=== PATIENT | female | born 1975 | race Caucasian/White ===

== ENCOUNTER 2016-12-18 16:24 | Inpatient (IN) ==
[2016-12-18] MEDS ORDERED: Gabapentin 400 MG CAPSULE PO PRN (16:54)
[2016-12-18] MEDS ORDERED: MOM Conc 10 ML UD.LIQ PO PRN (16:56)
[2016-12-18] MEDS ORDERED: Haloperidol Lactate 5 MG/ML VIAL IM PRN (16:56)
[2016-12-18] MEDS ORDERED: hydrOXYzine pamoate 25 MG CAPSULE PO PRN (16:56)
[2016-12-18] MEDS ORDERED: Mag Hydrox/Al Hydrox/Simeth 30 ML UDC PO PRN (16:56)
[2016-12-18] MEDS ORDERED: *HR* LORazepam 2 MG/ML VIAL IM PRN (16:56)
[2016-12-18] MEDS ORDERED: *HR* LORazepam 1 MG TABLET PO PRN (16:56)
[2016-12-18] MEDS: Nicotine 14 MG PATCH.TD24 TD SCH (17:47)
[2016-12-18] MEDS: traZODone 50 MG TABLET PO PRN (21:03)
[2016-12-18] MEDS: Ibuprofen 400 MG TABLET PO PRN (21:03)
[2016-12-19] MEDS: Nicotine 14 MG PATCH.TD24 TD SCH (08:12)
[2016-12-19] MEDS: Cholecalciferol (D-3) 1,000 UNIT TABLET PO SCH (08:13)
[2016-12-19] MEDS ORDERED: FLUoxetine 20 MG CAPSULE PO SCH ×2 (09:00→11:47)
--- NOTE | 2016-12-19 11:40 | Psychiatry History & Physical ---
Date of Encounter: 12/19/16 Time of Encounter: 11:35 History of Present Illness Patient Stated Chief Complaint: "I am just so overwhelmed." Medicare Admission Attestation: For traditional Medicare patients the provided hospital inpatient services are reasonable and necessary and in the case of services not specified as inpatient -only under 42 CFR 419.22 (n), that they are appropriately provided as inpatient services in accordance 42 CFR 412.3. For Critical [facility] Hospital the patient may reasonably be expected to be discharged or transferred to a hospital within 96 hours after admission to the Critical Access Hospital. Admitted From: Direct Admit History of Present Illness: Ms. Lomeli is a 41 year old female with a history of depression and anxiety treated by PCP who presented to the outside hospital yesterday with increasing depression, panic attacks, suicidal ideation with a plan to drive her car off a bridge. Patient's called the hospital and it was recommended that she be evaluated. She was seen in the ER and continued to endorse suicidal thoughts with a plan to drive her car off the bridge. She was then admitted to for psychiatric stabilization. Patient states today she is starting to feel more calm but still feels very depressed and hopeless. Patient reports that they are having a lot of financial difficulties because her stopped going to work and will lose his job. He has been unable to find a new job. Having the kids home over the summer and being unable to pay her bills has been very stressful. She reports that she is taking Prozac provided by her primary care doctor and that this medication has helped some with her depression but not really with her anxiety. She also reports difficulty falling asleep and staying asleep. She denies grandiosity, decreased need for sleep, impulsivity. She denies obsessions, delusions, paranoia. Patient states that prior to coming into the hospital she was having panic attacks with difficulty breathing and chest pain. She denies any current chest pain or shortness of breath now. Past Med Surg Social Fam HX - Past Medical History Medical history: hyperlipidemia, hypertension, other - Past Psychiatric History Psychiatric history: Reports: anxiety, depression. Denies: prior suicide attempt, previous psychiatric hospitalization Past psychiatric history details: Patient seen by PCP as an outpatient. No counseling. Patient does not have a history of inpatient admissions or suicide attempts. Family psychiatric history: No Family History of Suicide: None - Social History Smoking Status: Current every day smoker Smokeless Tobacco Status: No Alcohol use: none Drug use: marijuana Occupational status: unemployed Current living situation: Home, With Family - Family History Mother Adopted: Madill: Riya Tavarez Age: 61 Family Member Ethnicity: Non- Living Status: Still Living Hx Family Cardiac Disorders: Yes (Tachycardia) Hx Family Respiratory Disorders: Yes (on oxygen) Hx Family Cancer: No Hx Family GI Disorders: No Hx Family Genitourinary Disorders: No Hx Family Endocrine Disorder: Yes (IDDM) Hx Family Musculoskeletal Disorders: No Hx Family Neuromuscular Disorders: No Hx Family Neurologic Disorders: No Hx Family HEENT Disorders: No Hx Family Autoimmune Disorders: No Hx Family Reproductive Disorders: No Hx Family Psychosocial Disorders: No Hx Family Medical Disorders: No Medications & Allergies Atorvastatin Calcium [Lipitor] 20 mg PO DAILY 06/28/15 [History] Ergocalciferol (VITAMIN D2) [Vitamin D2 (50,000 UNIT)] 50,000 unit PO AGUIRRE [History] Gabapentin [Neurontin] 800 mg PO Q8H PRN 06/28/15 [History] Lisinopril/Hydrochlorothiazide [Zestoretic 20-25 mg Tablet] 1 tab PO DAILY 06/28 [History] traZODone [TraZODone] 50 mg PO HS PRN 06/28/15 [History] FLUoxetine HCl [Prozac] 80 mg PO DAILY 12/18/16 [History] Acetaminophen [Tylenol Arthritis] 650 mg PO Q8H PRN 12/19/16 [History] Valsartan/Hydrochlorothiazide [Diovan Hct 320-25 mg Tablet] 1 tab PO DAILY 12/19 [History] amLODIPine [Norvasc] 5 mg PO DAILY 12/19/16 [History] Allergies No Known Allergies Allergy (Verified 06/28/15 13:38) Review of Systems Constitutional: Denies: fever, chills, weakness, weight change Eyes: Denies: eye pain, vision change Ears, Nose, Throat: Denies: ear pain, throat pain, dental pain, hearing loss, congestion Cardiovascular: Denies: chest pain, palpitations, dyspnea on exertion Respiratory: Denies: cough, dyspnea, wheezes Gastrointestinal: Denies: abdominal pain, nausea, vomiting, diarrhea, constipation Genitourinary male: Denies: urgency, dysuria, frequency, genital lesions Genitourinary female: Denies: urgency, dysuria, frequency, abnormal menses, dyspareunia Musculoskeletal: Denies: joint swelling, joint pain Integumentary: Denies: rash, lesions, pruritus Neurological: Denies: headache, weakness, numbness, memory loss Psychiatric: Reports: depression, anxiety, abnormal sleep pattern, suicidal ideation, anhedonia, difficulty concentrating, hopelessness, irritability, mood swings, panic attacks, other (finanical stress) Endocrine: Denies: fatigue, heat or cold intolerance Hematologic/Lymphatic: Denies: easy bruising, lymphadenopathy Allergic/Immunologic: Denies: urticaria, itchy eyes Mental Status Exam Patient orientation: Yes Person, Yes Time, Yes Place Level of alertness: Alert Patient appearance: Unkempt Behavior: cooperative Psychomotor activity: Normal Eye contact: Minimal Contact Mood description: Depressed, Anxious Affect description: tearful, dysphoric Speech pattern: Normal rate, Normal rhythm, Normal tone Speech volume: Normal Thought process: Intact Thought content: Yes Suicidal ideation, No Homicidal ideation Perceptual disturbances: No Auditory hallucinations, No Visual hallucinations Attention span: Capable of Focused Attention Memory description: Grossly Intact Patient reliability: Reliable Historian Intelligence estimate: Average Judgment: Limited Insight: Minimal Exam - HEENT Head exam IM: Present: atraumatic Eye exam IM: Present: EOMI, normal appearance - Neurological Neurological exam IM: Present: CN II-XII intact - Skin Skin exam IM: Present: dry, intact Results - Vital Signs Vital signs: Temp Pulse Resp BP 97.2 F L 68 16 147/104 12/19/16 08:40 12/19/16 08:40 12/19/16 08:40 12/19/16 08:40 Assessment and Plan (1) Major depressive disorder, recurrent episode Current visit: Yes Status: Acute Plan: Admit inpatient for safety and stabilization, Close observation, Suicide Precautions per unit protocol, Encourage participation in unit milieu, Group Therapy, Monitor sleep, Monitor appetite Additional Plan: Admission 1A for psychiatric stabilization. Patient is feeling slightly better since admission but still feels hopeless with passive ideations. We will increase Prozac to 60 mg by mouth daily. Start trazodone for sleep. Encourage group attendance. Suicide precautions. Risks, benefits, side effects, alternatives discussed w/pt: Yes Patient agreeable to treatment: Yes Plans for Post Hospital Care: Home Estimated Length of Stay (Days): 3 Qualifiers: Major depression episode severity: severe Psychotic features: without psychotic features Qualified Code(s): F33.2 - Major depressive disorder, recurrent severe without psychotic features (2) Anxiety Current visit: Yes Status: Acute Plan: Admit inpatient for safety and stabilization, Close observation, Suicide Precautions per unit protocol, Encourage participation in unit milieu, Group Therapy, Monitor sleep, Monitor appetite Additional Plan: Vistaril as needed for anxiety symptoms. Encourage positive coping strategies. Risks, benefits, side effects, alternatives discussed w/pt: Yes Patient agreeable to treatment: Yes
[2016-12-19] MEDS: Ibuprofen 400 MG TABLET PO PRN (18:43)
[2016-12-19] MEDS: traZODone 50 MG TABLET PO PRN (20:39)
[2016-12-20] MEDS: Nicotine 14 MG PATCH.TD24 TD SCH (08:39)
[2016-12-20] MEDS: Cholecalciferol (D-3) 1,000 UNIT TABLET PO SCH (08:41)
[2016-12-20] MEDS ORDERED: Valsartan 160 MG TABLET PO SCH (09:00)
[2016-12-20] MEDS ORDERED: amLODIPine 5 MG TABLET PO SCH (09:00)
[2016-12-20] MEDS ORDERED: hydroCHLOROthiazide 25 MG TABLET PO SCH (09:00)
[2016-12-20 09:30] VITALS: BP 140/99
--- NOTE | 2016-12-20 10:55 | Discharge Summary ---
Date of Encounter: 12/20/16 Time of Encounter: 10:30 Diagnosis - Discharge Diagnosis (1) Major depressive disorder, recurrent episode Priority: Primary Status: Acute Qualifiers: Major depression episode severity: severe Psychotic features: without psychotic features Qualified Code(s): F33.2 - Major depressive disorder, recurrent severe without psychotic features (2) Anxiety Priority: Secondary Status: Acute Medications - Discharge Medications Prescriptions: FLUoxetine HCl [Prozac] 60 mg PO DAILY #90 capsule hydrOXYzine pamoate [HydrOXYzine Pamoate] 25 mg PO TID PRN #90 capsule PRN Reason: Anxiety traZODone [TraZODone] 50 mg PO HS PRN #60 tablet PRN Reason: Sleep Atorvastatin Calcium [Lipitor] 20 mg PO DAILY 06/28/15 [History] Ergocalciferol (VITAMIN D2) [Vitamin D2 (50,000 UNIT)] 50,000 unit PO AGUIRRE [History] Gabapentin [Neurontin] 800 mg PO Q8H PRN 06/28/15 [History] Lisinopril/Hydrochlorothiazide [Zestoretic 20-25 mg Tablet] 1 tab PO DAILY 06/28 [History] Valsartan/Hydrochlorothiazide [Diovan Hct 320-25 mg Tablet] 1 tab PO DAILY 12/19 [History] amLODIPine [Norvasc] 5 mg PO DAILY 12/19/16 [History] FLUoxetine HCl [Prozac] 60 mg PO DAILY #90 capsule 12/20/16 [Rx] hydrOXYzine pamoate [HydrOXYzine Pamoate] 25 mg PO TID PRN #90 capsule 12/20/16 [Rx] traZODone [TraZODone] 50 mg PO HS PRN #60 tablet 12/20/16 [Rx] Allergies No Known Allergies Allergy (Verified 06/28/15 13:38) Provider Date of admission: 12/18/16 16:24 Primary care physician: PCP NO Discharging clinician: Laura Rosales Assessment and Plan - Patient/Caregiver Discharge Instructions Activity: resume usual activities as tolerated Diet: regular diet - Follow up [facility]06/[facility] 3:15 pm (The above appointment is withKaren for mental health counseling. You will also see Dr. oClumba Jordan, psychiatrist, on 01/15/2017 at 4:30pm. Please arrive 15 minutes early to complete paperwork. Please bring your insurance card, photo ID and medications in their original bottles. If you do not have insurance, bring proof of income to apply for the sliding fee scale. If you are unable to keep this appointment, 24 hour business notice of cancellation is expected. This is the first available appointment. You may contact the office regularly to check for cancellations that may allow you to be seen sooner. ) Functional capacity at discharge: independent ambulation Overall status at discharge: Stable Disposition: Home, Self-Care Hospital Course Hospital course: Ms. Lomeli is a 41 year old female with a history of depression and anxiety who presented to an outside hospital with increasing SI and anxiety was admitted to for psychiatric stabilization. She was incorporated into the therapeutic milieu and offer group and individual as well as recreational therapy. Patient was also offered psychoeducational materials and supportive therapy. She was placed on suicide precautions and close observation per unit protocol. She was restarted on her home meds of Prozac and trazodone. Patient's Prozac was increased to 60 mg by mouth daily for continued anxiety symptoms. She was given Vistaril as needed for anxiety. Throughout the course of the hospital stay the patient's mood improved. She noted that her initial stressors seemed more manageable and she was able to discuss some of her financial concerns with her . She did attend group and unit activities. She was cooperative and pleasant with peers and staff on the unit. At the time of discharge patient is willing to follow up with outpatient counseling and continue to see her doctor for medication management. She denied suicidal or homicidal ideation , intent or plan. She is discharged in stable condition. - Time Spent with Patient Total time spent providing and/or coordinating discharge services: Less than 30 minutes Quality - Multiple Antipsychotics Patient discharged on 2 or more antipsychotic medications: No Procedures - Procedures Procedures: Medication Management, Crisis Stabilization, Supportive Therapy, Group Therapy, Psychoeducational Therapy Mental Status Exam - Mental Status Exam Patient orientation: Yes Person, Yes Time, Yes Place Level of alertness: Alert Patient appearance: Appropriate, Well Groomed Behavior: calm, cooperative Psychomotor activity: Normal Eye contact: Maintains Eye Contact Mood description: Euthymic/stable Affect description: congruent with mood, full range Speech pattern: Normal rate, Normal rhythm, Normal tone Speech Volume: Normal Thought process: Linear, Goal Oriented Thought Content: No Suicidal ideation, No Homicidal ideation, No Overt delusions Perceptual Disturbances: No Auditory hallucinations, No Visual hallucinations Judgment: Limited Insight: Partial
== END 2016-12-20 12:20 | disposition home or self-care (01) | DRG 885 ==
LOC: 1ANU 16:24
PROVIDERS: ADMIT Student in an Organized Health Care Education/Training Program; ATTEND Student in an Organized Health Care Education/Training Program

== ENCOUNTER 2020-02-28 08:25 | Inpatient (IN) ==
[2020-02-28] MEDS ORDERED: Orphenadrine 60 MG/2 ML VIAL IM ONE (08:48)
[2020-02-28] MEDS ORDERED: methylPREDNISolone 125 MG/2 ML VIAL ONE (08:51)
[2020-02-28] MEDS ORDERED: *HR* HYDROmorphone (PF) 1 MG/ML SYRINGE IVP STA (10:24)
[2020-02-28] MEDS ORDERED: Naloxone 0.4 MG/ML INJ IVP PRN (10:39)
[2020-02-28] MEDS ORDERED: Ondansetron 4 MG/2 ML VIAL IVP ONE (10:40)
[2020-02-28] MEDS ORDERED: *HR* FentaNYL (PF) 100 MCG/2 ML VIAL IVP PRN (10:45)
[2020-02-28 10:56] LABS: Hematocrit 40.4 % (35.3-44.9); Hemoglobin 13.3 g/dL (11.5-15.4); Mean Corpuscular HGB Conc 32.9 g/dL (31.6-35.5); Mean Corpuscular Hemoglobin 29.7 pg (28.0-33.3); Mean Corpuscular Volume 90.2 fL (83.0-100.0); Mean Platelet Volume 9.6 fL (9.4-12.4); Platelet Count 272 K/mcL (140-400); Red Blood Count 4.48 M/mcL (3.82-4.97); Red Cell Distribution Width 14.1 % (11.5-14.5); White Blood Count 10.6 K/mcL (4.3-11.1)
[2020-02-28 11:04] LABS: BUN/Creatinine Ratio 17 (6-26); Blood Urea Nitrogen 11 mg/dL (6-20); Calcium 8.7 mg/dL (8.6-10.3); Carbon Dioxide 28 mEq/L (23-29); Chloride 106 mEq/L (98-107); Glucose 123 mg/dL (70-105); Osmolality,Calculated 291 (280-300); Potassium 3.5 mEq/L (3.5-5.1); Sodium 140 mEq/L (136-145); eGFR For African Americans > 60 (> 60); eGFR For Non-African Americans > 60 (> 60)
[2020-02-28 11:12] LABS: INR 1.1; Prothrombin Time 12.8 Seconds (9.4-12.1)
[2020-02-28] MEDS ORDERED: methylPREDNISolone 125 MG/2 ML VIAL IM SCH (12:00)
[2020-02-28] MEDS: lisinopriL 20 MG TABLET PO SCH (12:21)
[2020-02-28] MEDS: amLODIPine 5 MG TABLET PO SCH (12:21)
[2020-02-28] MEDS: predniSONE 20 MG TABLET PO SCH (12:45)
[2020-02-28] MEDS: *HR* Heparin 5,000 UNIT/ML VIAL SQ SCH ×2 (13:31→21:17)
[2020-02-29] MEDS: *HR* Heparin 5,000 UNIT/ML VIAL SQ SCH (05:40)
[2020-02-29] MEDS ORDERED: *HR* Propofol 200 MG/20 ML VIAL IVP ONE (06:55)
[2020-02-29] MEDS ORDERED: *HR* Rocuronium Bromide 50 MG/5 ML VIAL ONE (06:57)
[2020-02-29] MEDS ORDERED: Ondansetron 4 MG/2 ML VIAL ONE (06:57)
[2020-02-29] MEDS ORDERED: Dexamethasone 4 MG/ML VIAL ONE (06:57)
[2020-02-29] MEDS ORDERED: Lidocaine -MPF 2% 2 ML VIAL ONE ×2 (06:57→06:58)
[2020-02-29] MEDS ORDERED: *HR* FentaNYL (PF) 100 MCG/2 ML VIAL ONE (06:59)
[2020-02-29] MEDS ORDERED: Bacitracin 50,000 UNIT, Polymyxin B Sulfate 500,000 UNIT, Sodium Chloride IRRigation 1,... IR ONE (07:30)
[2020-02-29] MEDS ORDERED: Acetaminophen IV 1,000 MG/100 ML INFUS..BTL ONE (08:09)
[2020-02-29] MEDS ORDERED: Famotidine 20 MG/2 ML VIAL ONE (08:09)
[2020-02-29] MEDS ORDERED: Pregabalin 75 MG CAPSULE ONE (08:10)
[2020-02-29] MEDS: amLODIPine 5 MG TABLET PO SCH (08:44)
[2020-02-29] MEDS: predniSONE 20 MG TABLET PO SCH (08:44)
[2020-02-29] MEDS: lisinopriL 20 MG TABLET PO SCH (08:44)
[2020-02-29] MEDS ORDERED: *HR* PHENYLEPHRINE 1,000 MCG/10 ML SYRINGE IVP ONE (09:41)
[2020-02-29] MEDS ORDERED: *HR* HYDROmorphone (PF) 1 MG/ML SYRINGE ONE (12:19)
[2020-02-29] MEDS ORDERED: Ringers Solution, Lactated 1,000 ML ONE (12:20)
[2020-02-29] MEDS: *HR* HYDROmorphone (PF) 1 MG/ML SYRINGE IVP PRN ×5 (12:22→13:24)
[2020-02-29] MEDS ORDERED: *HR* Labetalol 20 MG/4 ML SYRINGE IVP PRN (12:35)
[2020-02-29] MEDS ORDERED: *HR* HYDROmorphone PF 0.5 MG/0.5 ML SYRINGE IVP PRN (12:35)
[2020-02-29] MEDS ORDERED: *HR* HYDROmorphone 2 MG TABLET PO PRN (12:35)
[2020-02-29] MEDS ORDERED: *HR* OxyCODONE Immed Rel 5 MG TABLET PO PRN (12:35)
[2020-02-29] MEDS ORDERED: *HR* Promethazine 25 MG/ML VIAL IVP PRN (12:35)
[2020-02-29] MEDS ORDERED: Famotidine 20 MG/2 ML VIAL IVP ONE (12:35)
[2020-02-29] MEDS ORDERED: *HR* OxyCODONE Immed Rel 5 MG TABLET PO ONE (13:02)
[2020-02-29] MEDS ORDERED: *HR* HYDROmorphone (PF) 1 MG/ML SYRINGE IVP PRN (13:03)
[2020-02-29] MEDS ORDERED: Gabapentin 400 MG CAPSULE PO SCH (15:00)
[2020-02-29] MEDS ORDERED: Ondansetron 4 MG/2 ML VIAL IVP PRN (15:09)
[2020-02-29] MEDS ORDERED: Acetaminophen 325 MG TABLET PO PRN (15:09)
[2020-02-29] MEDS ORDERED: Naloxone 0.4 MG/ML INJ IVP PRN (15:09)
[2020-02-29] MEDS ORDERED: Ringers Solution, Lactated 1,000 ML IVC SCH (15:09)
[2020-02-29] MEDS: CeFAZolin 2 GM/120 ML BAG IVPB SCH ×2 (16:31→23:41)
[2020-02-29] MEDS: *HR* OxyCODONE Immed Rel 5 MG TABLET PO PRN (17:56)
[2020-02-29] MEDS ORDERED: Acetaminophen IV 1,000 MG/100 ML INFUS..BTL IVPB PRN (18:46)
[2020-02-29] MEDS ORDERED: Ketorolac 30 MG/ML VIAL IVP ONE (18:47)
[2020-03-01] MEDS: *HR* OxyCODONE Immed Rel 5 MG TABLET PO PRN ×5 (03:20→21:41)
[2020-03-01 06:06] LABS: Basophils % 0.2 %; Eosinophils # 0.1 K/mcL (0.0-0.6); Eosinophils % 0.5 %; Hematocrit 35.7 % (35.3-44.9); Immature Granulocytes % 0.4 % (0-4); Lymphocytes # 1.6 K/mcL (0.6-4.6); Lymphocytes % 15.4 %; Mean Corpuscular HGB Conc 32.2 g/dL (31.6-35.5); Mean Corpuscular Hemoglobin 29.7 pg (28.0-33.3); Mean Corpuscular Volume 92.2 fL (83.0-100.0); Mean Platelet Volume 9.8 fL (9.4-12.4); Monocytes # 1.4 K/mcL (0.0-1.3); Monocytes % 13.4 %; Neutrophils # 7.5 K/mcL (1.6-8.9); Platelet Count 249 K/mcL (140-400); Red Blood Count 3.87 M/mcL (3.82-4.97); Red Cell Distribution Width 14.4 % (11.5-14.5); Segmented Neutrophils % 70.1 %; White Blood Count 10.6 K/mcL (4.3-11.1)
[2020-03-01 06:07] LABS: Hemoglobin 11.5 g/dL (11.5-15.4)
[2020-03-01 06:30] LABS: BUN/Creatinine Ratio 16 (6-26); Blood Urea Nitrogen 10 mg/dL (6-20); Calcium 7.8 mg/dL (8.6-10.3); Carbon Dioxide 30 mEq/L (23-29); Chloride 104 mEq/L (98-107); Glucose 129 mg/dL (70-105); Osmolality,Calculated 289 (280-300); Potassium 3.5 mEq/L (3.5-5.1); Sodium 139 mEq/L (136-145); eGFR For African Americans > 60 (> 60); eGFR For Non-African Americans > 60 (> 60)
[2020-03-01] MEDS: lisinopriL 20 MG TABLET PO SCH (08:17)
[2020-03-01] MEDS: hydroCHLOROthiazide 25 MG TABLET PO SCH (08:17)
[2020-03-01] MEDS: FLUoxetine 20 MG CAPSULE PO SCH (08:17)
[2020-03-01] MEDS: amLODIPine 5 MG TABLET PO SCH (08:17)
[2020-03-01] MEDS: Loratadine 10 MG TABLET PO SCH (08:19)
[2020-03-01] MEDS: Cholecalciferol (D-3) 1,000 UNIT (25MCG) TABLET PO SCH (08:19)
[2020-03-01] MEDS ORDERED: FLUoxetine 20 MG CAPSULE PO SCH (09:00)
[2020-03-01] MEDS: Gabapentin 400 MG CAPSULE PO SCH ×4 (09:53→20:35)
[2020-03-01] MEDS: diazePAM 10 MG TABLET PO PRN (14:04)
[2020-03-01] MEDS: *HR* Heparin 5,000 UNIT/ML VIAL SQ SCH (21:41)
[2020-03-02] MEDS: *HR* OxyCODONE Immed Rel 5 MG TABLET PO PRN ×4 (01:42→20:47)
[2020-03-02] MEDS: diazePAM 10 MG TABLET PO PRN ×2 (03:43→18:12)
[2020-03-02] MEDS: *HR* Heparin 5,000 UNIT/ML VIAL SQ SCH ×2 (05:50→16:00)
[2020-03-02 06:06] LABS: Basophils % 0.3 %; Eosinophils % 0.3 %; Hematocrit 32.7 % (35.3-44.9); Hemoglobin 10.7 g/dL (11.5-15.4); Immature Granulocytes % 0.6 % (0-4); Lymphocytes # 1.5 K/mcL (0.6-4.6); Lymphocytes % 12.2 %; Mean Corpuscular HGB Conc 32.7 g/dL (31.6-35.5); Mean Corpuscular Hemoglobin 29.6 pg (28.0-33.3); Mean Corpuscular Volume 90.3 fL (83.0-100.0); Monocytes # 1.4 K/mcL (0.0-1.3); Monocytes % 11.4 %; Neutrophils # 9.5 K/mcL (1.6-8.9); Platelet Count 231 K/mcL (140-400); Red Blood Count 3.62 M/mcL (3.82-4.97); Segmented Neutrophils % 75.2 %; White Blood Count 12.6 K/mcL (4.3-11.1)
[2020-03-02 07:19] LABS: BUN/Creatinine Ratio 15 (6-26); Blood Urea Nitrogen 9 mg/dL (6-20); Calcium 8.1 mg/dL (8.6-10.3); Carbon Dioxide 30 mEq/L (23-29); Chloride 99 mEq/L (98-107); Glucose 128 mg/dL (70-105); Osmolality,Calculated 282 (280-300); Potassium 3.1 mEq/L (3.5-5.1); Sodium 136 mEq/L (136-145); eGFR For African Americans > 60 (> 60); eGFR For Non-African Americans > 60 (> 60)
[2020-03-02] MEDS: *HR* HYDROcodone/Acet 5/325 mg TABLET PO PRN ×2 (08:29→15:10)
[2020-03-02] MEDS: FLUoxetine 20 MG CAPSULE PO SCH (08:29)
[2020-03-02] MEDS: amLODIPine 5 MG TABLET PO SCH (08:29)
[2020-03-02] MEDS: hydroCHLOROthiazide 25 MG TABLET PO SCH (08:29)
[2020-03-02] MEDS: Gabapentin 400 MG CAPSULE PO SCH ×3 (08:30→20:47)
[2020-03-02] MEDS: lisinopriL 20 MG TABLET PO SCH (08:30)
[2020-03-02] MEDS: Loratadine 10 MG TABLET PO SCH (08:30)
[2020-03-02] MEDS: Cholecalciferol (D-3) 1,000 UNIT (25MCG) TABLET PO SCH (08:30)
[2020-03-02] MEDS ORDERED: Sennosides/Docusate Sodium TABLET PO SCH (09:30)
[2020-03-02] MEDS: Sennosides/Docusate Sodium TABLET PO SCH (20:47)
[2020-03-02] MEDS ORDERED: Melatonin 3 MG TABLET PO SCH (21:00)
[2020-03-03] MEDS: *HR* OxyCODONE Immed Rel 5 MG TABLET PO PRN ×3 (03:26→15:13)
[2020-03-03] MEDS: diazePAM 10 MG TABLET PO PRN (05:17)
[2020-03-03] MEDS: *HR* HYDROcodone/Acet 5/325 mg TABLET PO PRN (05:44)
[2020-03-03] MEDS: *HR* Heparin 5,000 UNIT/ML VIAL SQ SCH (05:45)
[2020-03-03] MEDS ORDERED: Potassium Chloride Elixir 20 MEQ/15 ML UDC PO ONE (09:40)
[2020-03-03] MEDS: lisinopriL 20 MG TABLET PO SCH (10:35)
[2020-03-03] MEDS: FLUoxetine 20 MG CAPSULE PO SCH (10:35)
[2020-03-03] MEDS: hydroCHLOROthiazide 25 MG TABLET PO SCH (10:37)
[2020-03-03] MEDS: Cholecalciferol (D-3) 1,000 UNIT (25MCG) TABLET PO SCH (10:37)
[2020-03-03] MEDS: amLODIPine 5 MG TABLET PO SCH (10:37)
[2020-03-03] MEDS: Gabapentin 400 MG CAPSULE PO SCH ×2 (10:37→15:13)
[2020-03-03] MEDS: Sennosides/Docusate Sodium TABLET PO SCH (10:38)
[2020-03-03] MEDS: Loratadine 10 MG TABLET PO SCH (10:38)
[2020-03-03 12:09] LABS: Basophils # 0.1 K/mcL (0.0-0.2); Basophils % 0.4 %; Eosinophils # 0.4 K/mcL (0.0-0.6); Eosinophils % 3.1 %; Hematocrit 32.2 % (35.3-44.9); Hemoglobin 10.4 g/dL (11.5-15.4); Immature Granulocytes % 0.4 % (0-4); Lymphocytes # 1.9 K/mcL (0.6-4.6); Lymphocytes % 15.4 %; Mean Corpuscular HGB Conc 32.3 g/dL (31.6-35.5); Mean Corpuscular Hemoglobin 29.5 pg (28.0-33.3); Mean Corpuscular Volume 91.5 fL (83.0-100.0); Monocytes # 1.2 K/mcL (0.0-1.3); Monocytes % 9.6 %; Neutrophils # 8.8 K/mcL (1.6-8.9); Platelet Count 283 K/mcL (140-400); Red Blood Count 3.52 M/mcL (3.82-4.97); Red Cell Distribution Width 13.8 % (11.5-14.5); Segmented Neutrophils % 71.1 %; White Blood Count 12.4 K/mcL (4.3-11.1)
[2020-03-03 12:28] LABS: BUN/Creatinine Ratio 19 (6-26); Blood Urea Nitrogen 13 mg/dL (6-20); Calcium 8.3 mg/dL (8.6-10.3); Carbon Dioxide 32 mEq/L (23-29); Chloride 100 mEq/L (98-107); Glucose 110 mg/dL (70-105); Osmolality,Calculated 285 (280-300); Potassium 3.1 mEq/L (3.5-5.1); Sodium 137 mEq/L (136-145); eGFR For African Americans > 60 (> 60); eGFR For Non-African Americans > 60 (> 60)
[2020-03-03 15:39] VITALS: BP 102/64
== END 2020-03-03 17:45 | disposition home health service (06) | DRG 454 ==
LOC: EMEROOARM 08:25 → 3NENU 08:25 → SUATTDRO 11:02 → 3NENU 11:40 → SUATTDRO 03-02 08:12
PROVIDERS: ADMIT Student in an Organized Health Care Education/Training Program; ATTEND Internal Medicine